=== PATIENT | female | born 1930 | race African-American/Black ===

== ENCOUNTER 2016-07-08 22:51 | Outpatient (CLI) ==
[2016-07-08 23:19] VITALS: BMI 21.3
== END 2016-07-08 22:52 ==
LOC: AMBL 22:51
PROVIDERS: ATTEND Internal Medicine Geriatric Medicine
DX: R10.9 Unspecified abdominal pain (principal); M79.672 Pain in left foot; M79.671 Pain in right foot; R82.99 Other abnormal findings in urine; Z98.890 Other specified postprocedural states; Z96.0 Presence of urogenital implants

== ENCOUNTER 2016-07-08 23:06 | Emergency (ER) ==
[2016-07-08 23:19] VITALS: BP 150/56; TEMP 99.1; BMI 21.3
--- NOTE | 2016-07-08 23:39 | ED.PDOC ---
General ED Provider: Dr. MUNIRA ZELAYA Chief Complaint: Fever Stated Complaint: Patient is brought by ambulance with ? fever but temp is 99. Also has not had a bowel movement in 4 days. Recently had an inguinal hernia two weeks ago with healing wound. Complaints of both feet swelling and painful. Time Seen by Physician: 23:29 Mode of Arrival: Ambulance Information Source: Patient, Alf, EMT Exam Limitations: No limitations Primary Care Provider: JAIME MISTRY Nursing and Triage Documentation Reviewed and Agree: Yes Miscellaneous Complaint Exam - Febrile Illness/Adult Complaint/Exam Onset/Duration: 2 days Symptoms Are: Resolved Highest Temperature Recorded: unknown Initial Severity: Mild Current Severity: Mild Aggravating: Reports: Unknown Associated Signs and Symptoms: Denies: Headache, Fluid intake, Short of air, Cough, Sore throat, Nausea, Vomiting, Chills, Diaphoresis, Dysuria, Arthralgia, Stiff neck, Myalgia, Rash, Altered mental status Pseudomonas Risk Factors: Reports: None Serious Bacterial Infection Risk Factors: Reports: None Current Antibiotic Use: No Related Surgical History: Recent Invasive procedure Differential Diagnoses: Other (constipation) Quality Indicator For Non-Traumatic Chest Pain/Syncope: EKG Performed Patient Advised to Stop Smoking: Yes Review of Systems - Review Of Systems Constitutional: Denies: Fever Eyes: Reports: No symptoms Ears, Nose, Mouth, Throat: Reports: No symptoms Respiratory: Reports: No symptoms Cardiac: Reports: No symptoms GI: Reports: Constipated : Reports: No symptoms Musculoskeletal: Reports: Joint pain, Joint swelling (ankles ( chronic) ) Skin: Reports: No symptoms Neurological: Reports: Anxiety Endocrine: Reports: No symptoms Hematologic/Lymphatic: Reports: No symptoms All Other Systems: Reviewed and Negative Past Medical History - Past Medical History Endocrine: Reports: None Cardiovascular: Reports: Hypertension Respiratory: Reports: None Hematological: Reports: Anemia Gastrointestinal: Reports: None Genitourinary: Reports: None Neuro/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 ), Anxiety Musculoskeletal: Reports: Arthritis Cancer: Reports: None Last Menstrual Period: na - Surgical History General Surgical History: Reports: Hernia Repair (recent), Other (Cataract surgery left eye. ) - Family History Family History: Reports: None - Social History Smoking Status: Former smoker Hx Substance Use: No Alcohol Screening: None - Immunizations Tetanus Shot up to Date: No (unknown) Physical Exam - Physical Exam Appearance: No pain distress, Well-nourished Ill-appearing: Mild Eyes: JENNIFER, EOMI, Conjunctiva clear ENT: Oropharynx normal Neck: Supple Respiratory: Airway patent, Breath sounds clear, Breath sounds equal, Respirations nonlabored Cardiovascular: RRR, Pulses normal, No rub, No murmur GI/: Soft, Nontender, No masses, No Organomegaly, Bowel sounds hyperactive ( some hemorroids noted. There is no stool in the rectal vault on digital rectal exam, no hematochezia. ) Musculoskeletal: Normal strength, ROM intact, No calf tenderness, Edema Skin: Warm, Dry, Normal color Neurological: Sensation intact, Motor intact, Reflexes intact, Cranial nerves intact, Alert, Oriented Psychiatric: Anxious Interpretation - Radiology Interpretation Radiology Interpretation By: Radiologist Radiology Results: Positive (large Collazo Colonic stool retention.) Exam Interpreted: Other (KUB) Critical Care Note - Critical Care Note Total Time (mins): 0 Course - Course Hematology/Chemistry: 07/08/16 23:45 07/08/16 23:45 Orders, Labs, Meds: Lab Review 07/08/16 23:45 WBC 7.82 RBC 2.81 L Hgb 8.5 L Hct 25.2 L MCV 89.7 MCH 30.2 MCHC 33.7 RDW Coeff of Jennifer 15.5 H Plt Count 293 Immature Gran % (Auto) 0.4 Neut % (Auto) 75.1 Lymph % (Auto) 9.8 L Morrison % (Auto) 10.5 H Eos % (Auto) 4.1 Baso % (Auto) 0.1 Immature Gran # (Auto) 0.0 Neut # 5.9 Lymph # 0.8 Morrison # 0.8 Eos # 0.3 Baso # 0.0 Sodium 141 Potassium 3.1 L Chloride 105 Carbon Dioxide 26 Anion Gap 13.1 BUN 26 H Creatinine 1.34 H Estimated GFR (MDRD) 45.00 BUN/Creatinine Ratio 19.40 Glucose 149 H Calcium 8.1 L Total Bilirubin 0.36 AST 11 L ALT 7 L Alkaline Phosphatase 37 L Total Protein 4.9 L Albumin 2.5 L Globulin 2.4 Albumin/Globulin Ratio 1.04 Amylase 48 Lipase 34 Orders Category Date Time Status AMYLASE Stat LAB 07/08/16 23:45 Completed BLOOD CULTURE Stat LAB 07/08/16 23:45 Received CBC W/ AUTO DIFF Stat LAB 07/08/16 23:45 Completed COMPREHENSIVE METABOLIC PANEL Stat LAB 07/08/16 23:45 Completed LIPASE Stat LAB 07/08/16 23:45 Completed KUB Stat RADS 07/09/16 00:02 Completed Vital Signs: Temp Pulse Resp BP Pulse Ox 07/08/16 23:07 99.1 F 84 24 150/56 H 90 L Departure - Departure Time of Disposition: 00:55 Disposition: HOME SELF-CARE Discharge Problem: Constipation Qualifiers: Constipation type: unspecified constipation type Qualifier Code: (K59.00) Constipation, unspecified Instructions: Constipation (ED) Condition: Fair Pt referred to PMD for follow-up: Yes Additional Instructions: Give mag citrate from above and Soap suds from below. Push fluids Prescriptions: Magnesium Citrate [Citrate of Magnesia] 10 oz PO ONCE #1 ml Allergies/Adverse Reactions: Allergies azithromycin [From Zithromax Z-Kishore] Adverse Reaction (Verified 12/04/15 00:17) Home Medications: Ambulatory Orders Carvedilol [Coreg] 3.125 mg PO BIDWM #60 tablet 11/30/13 Escitalopram Oxalate [Lexapro] 10 mg PO DAILY tablet 02/20/15 Minoxidil 2.5 mg PO BID tablet 02/20/15 Furosemide [Lasix] 20 mg PO DAILY #30 04/11/15 Clonidine HCl [Catapres] 0.2 mg PO BID #1 tablet 07/10/15 Lorazepam [Ativan] 0.25 mg PO BID #60 tablet 07/10/15 Acetaminophen [Pain & Fever] 650 mg PO Q4H PRN 12/04/15 Calcium Carbonate [Tums] 400 mg PO Q6H PRN 12/04/15 Ferrous Sulfate 325 mg PO TID 12/04/15 Magnesium Hydroxide [Milk of Magnesia] 30 ml PO Q24H PRN 12/04/15 Omeprazole [Prilosec] 20 mg PO DAILY 12/04/15 Magnesium Citrate [Citrate of Magnesia] 10 oz PO ONCE #1 ml 07/09/16 Disposition Discussed With: Patient
[2016-07-08 23:55] LABS: BASOPHILS % (AUTO) 0.1 % (0.0-3.0); EOSINOPHILS # (AUTO) 0.3 K/ul (0.0-0.7); EOSINOPHILS % (AUTO) 4.1 % (0.0-7.0); HEMATOCRIT 25.2 % (37.0-47.0); HEMOGLOBIN 8.5 g/dl (12.0-16.0); IMMATURE GRANULOCYTE % (AUTO) 0.4 % (0.0-5.0); LYMPHOCYTES # (AUTO) 0.8 K/uL (0.60-3.4); LYMPHOCYTES % (AUTO) 9.8 (10.0-50.0); MEAN CORPUSCULAR HEMOGLOBIN 30.2 pg (27.0-31.0); MEAN CORPUSCULAR HGB CONC 33.7 (31.8-35.4); MEAN CORPUSCULAR VOLUME 89.7 fl (81.0-99.0); MONOCYTES # (AUTO) 0.8 K/uL (0.4-2.0); MONOCYTES % (AUTO) 10.5 (0-10); NEUTROPHILS # (AUTO) 5.9 K/ul (2.0-6.9); NEUTROPHILS % (AUTO) 75.1; PLATELET COUNT 293 10^3/uL (140-440); RED BLOOD COUNT 2.81 10^6/ul (4.20-5.40); WHITE BLOOD COUNT 7.82 K/ul (4.6-10.2)
[2016-07-09 00:15] LABS: ALBUMIN 2.5 g/dL (3.4-5.0); ALBUMIN/GLOBULIN RATIO 1.04; ANION GAP 13.1; BILIRUBIN,TOTAL 0.36 mg/dL (0.00-1.20); BUN/CREATININE RATIO 19.4; CALCIUM 8.1 mg/dL (8.2-10.2); CREATININE 1.34 mg/dL (0.60-1.30); POTASSIUM 3.1 mmol/L (3.5-5.10); TOTAL PROTEIN 4.9 g/dL (5.8-8.1)
--- NOTE | 2016-07-09 00:34 | DI ---
Exam: Abdomen one-view History: Abdominal pain and no bowel movements FINDINGS: Nonobstructive bowel gas pattern. Large cunningham colonic stool retention. No free intraperit elkins gas is seen. No acute findings of the skeleton. Impression: Large cunningham colonic stool retention.
== END 2016-07-09 01:52 | disposition home or self-care (01) ==
LOC: ED 23:06
DX: K59.00 Constipation, unspecified (principal); R50.9 Fever, unspecified; I10 Essential (primary) hypertension; D64.9 Anemia, unspecified; Z98.890 Other specified postprocedural states; Z79.899 Other long term (current) drug therapy; Z86.73 Personal history of transient ischemic attack (TIA), and cerebral infarction without residual deficits
CPT/HCPCS: 36415; 80053; 82150; 83690; 85025; 87040; 99283

== ENCOUNTER 2016-07-23 17:38 | Outpatient (CLI) | payer OTHER | END 2016-07-23 17:39 | LOC: AMBL 17:38 | PROVIDERS: ATTEND Emergency Medicine | DX: R63.0 Anorexia (principal) ==